=== PATIENT | female | born 1995 ===

== ENCOUNTER 2017-06-10 19:00 | Emergency (ER) | payer OTHER ==
[~2017-06-10] VITALS: Ht 160 cm; Wt 97.5 kg
[~2017-06-10 19:00] MED LIST: Augmentin 875-1 EACH PO; Bactrim Ds Tab1 EACH PO; CYCL10 PO; Flonase 0.05% N16 GM; GUAIFENESIN1200 MG PO; IBUP600 PO; IBUP800 PO; Naprosyn500 MG PO; Prednisone20 MG PO; Pyridium200 MG PO; RANI150 PO; Zofran Odt4 MG PO; Zofran Odt4 MG SL
[2017-06-10] MEDS ORDERED: PSEU120ER PO (20:40)
== END 2017-06-10 20:50 | disposition home or self-care (01) ==
LOC: ER 19:00
DX: J32.9 Chronic sinusitis, unspecified (principal); K21.9 Gastro-esophageal reflux disease without esophagitis; F17.200 Nicotine dependence, unspecified, uncomplicated; Z88.5 Allergy status to narcotic agent
CPT/HCPCS: 99282

== ENCOUNTER 2017-10-30 20:05 | Emergency (ER) | payer OTHER ==
[~2017-10-30] VITALS: Ht 160 cm; Wt 95.2 kg
[~2017-10-30 20:05] MED LIST changes: +PSEU120ER PO
[2017-10-30 21:02] LABS: Hematocrit 41.3 % (33.0-51.0); Hemoglobin 13.2 g/dL (11.5-16.0); Mean Corpuscular HGB 29.3 pg (26.0-34.0); Mean Corpuscular Volume 92 fL (80-100); Mean Platelet Volume 10.5 fL (9.1-12.4); Platelet Count 320 K/mm3 (150-400); RDW Coefficient Variation 11.9 % (11.7-14.2); RDW Standard Deviation 40.3 fL (35.1-46.3); White Blood Cell Count 9.12 K/mm3 (4.00-11.30)
[2017-10-30] MEDS ORDERED: MEDR10 PO (21:50)
[2017-10-30] MEDS ORDERED: Naprosyn500 MG PO (21:50)
== END 2017-10-30 21:59 | disposition home or self-care (01) ==
LOC: ER 20:05
PROVIDERS: Emergency Medicine
DX: N93.8 Other specified abnormal uterine and vaginal bleeding (principal); F17.210 Nicotine dependence, cigarettes, uncomplicated
CPT/HCPCS: 36415; 84703; 85027; 96360; 99283; J7030

== ENCOUNTER → 2019-12-26 | Outpatient (CLI) | payer OTHER ==
[~2019-12-26] MED LIST changes: +MEDR10 PO
== END | disposition home or self-care (01) ==
LOC: LAB EV 10:26 → LAB SHORT 10:26
DX: J06.9 Acute upper respiratory infection, unspecified (principal); Z20.828 Contact with and (suspected) exposure to other viral communicable diseases
CPT/HCPCS: U0003

== ENCOUNTER 2020-06-21 08:32 | Day surgery (SDC) | payer OTHER ==
[~2020-06-21] VITALS: Ht 160 cm; Wt 96.3 kg
== END 2020-06-21 10:15 | disposition home or self-care (01) ==
LOC: ORSCSDS 08:32
PROVIDERS: Internal Medicine Gastroenterology
PROC: 0D758ZZ Dilation of Esophagus, Via Natural or Artificial Opening Endoscopic (ICD-10-PCS; principal; 2020-06-21 09:45)
PROC: 0DB58ZX Excision of Esophagus, Via Natural or Artificial Opening Endoscopic, Diagnostic (ICD-10-PCS; principal; 2020-06-21 09:45)
DX: R13.10 Dysphagia, unspecified (principal); K20.90 Esophagitis, unspecified without bleeding; K44.9 Diaphragmatic hernia without obstruction or gangrene; K21.9 Gastro-esophageal reflux disease without esophagitis; Z87.891 Personal history of nicotine dependence; Z79.899 Other long term (current) drug therapy
CPT/HCPCS: 88305; J2250; J2704; J7120

== ENCOUNTER → 2020-07-04 | Outpatient (CLI) | payer OTHER ==
[2020-07-05 11:08] LABS: Candida species (DNA Probe) Negative (NEGATIVE); G. vaginalis (DNA Probe) Negative (NEGATIVE); T. vaginalis (DNA Probe) Negative (NEGATIVE)
[2020-07-12 05:10] LABS: HPV APTIMA Positive (Negative); HPV GENOTYPE 16 Negative (Negative)
== END | disposition home or self-care (01) ==
LOC: PLD 16:37 → LAB SHORT 16:37
PROVIDERS: Advanced Practice Midwife
DX: Z01.419 Encounter for gynecological examination (general) (routine) without abnormal findings (principal); N76.0 Acute vaginitis
CPT/HCPCS: 87480; 87510; 87624; 87625; 87660; G0123

== ENCOUNTER → 2020-08-14 | Outpatient (CLI) | payer OTHER | END | disposition home or self-care (01) | LOC: PLD 08:28 → LAB SHORT 08:28 | DX: D06.9 Carcinoma in situ of cervix, unspecified (principal) | CPT/HCPCS: 88305 ==

== ENCOUNTER → 2020-09-19 | Outpatient (CLI) | payer OTHER | END | disposition home or self-care (01) | LOC: LAB SHORT 13:05 | DX: R87.619 Unspecified abnormal cytological findings in specimens from cervix uteri (principal) | CPT/HCPCS: 88307 ==

== ENCOUNTER → 2020-12-19 | Outpatient (CLI) | payer OTHER | END | disposition home or self-care (01) | LOC: LAB SHORT 18:55 → LAB 18:55 | DX: R35.0 Frequency of micturition (principal) | CPT/HCPCS: 87086 ==

== ENCOUNTER → 2021-04-01 | Outpatient (CLI) | payer OTHER ==
[~2021-04-01] MED LIST changes: +DICY20; +FAMO20; +FERSU300; +LANS30EC; +XYZAL5 MG
[2021-04-02 13:10] LABS: HPV 16 Negative (Negative); HPV 18 Negative (Negative); HPV OTHER HR TYPES Negative (Negative)
== END ==
LOC: LAB 11:12 → LAB SHORT 11:12
PROVIDERS: Obstetrics & Gynecology
DX: R87.619 Unspecified abnormal cytological findings in specimens from cervix uteri (principal)
CPT/HCPCS: 87624; 88142

== ENCOUNTER 2021-04-02 09:27 | Day surgery (SDC) | payer OTHER ==
[~2021-04-02] VITALS: Ht 160 cm; Wt 94.7 kg
--- NOTE | 2021-04-02 10:06 | NUR ---
04/02/21 1006 [facility] MISSED SECOND IV IN RIGHT AC WORKED BY RN
== END 2021-04-02 11:19 | disposition home or self-care (01) ==
LOC: ORSCSDS 09:27
PROVIDERS: Internal Medicine Gastroenterology
PROC: 0DJD8ZZ Inspection of Lower Intestinal Tract, Via Natural or Artificial Opening Endoscopic (ICD-10-PCS; principal; 2021-04-02 10:45)
DX: K62.5 Hemorrhage of anus and rectum (principal); R19.7 Diarrhea, unspecified; K64.8 Other hemorrhoids; D50.9 Iron deficiency anemia, unspecified; R13.10 Dysphagia, unspecified; K21.9 Gastro-esophageal reflux disease without esophagitis; Z79.899 Other long term (current) drug therapy
CPT/HCPCS: 88305; J2250; J2704; J7120

== ENCOUNTER 2021-08-11 06:08 | Day surgery (SDC) | payer OTHER ==
[~2021-08-11] VITALS: Ht 160 cm; Wt 98.1 kg
[2021-08-11] MEDS ORDERED: ONDA4ODT MM (07:46)
[2021-08-11] MEDS ORDERED: DULO60 PO (07:46)
[2021-08-11] MEDS ORDERED: SETLAKIN 0.151 EAC2 PO (07:47)
== END 2021-08-11 11:29 | disposition home or self-care (01) ==
LOC: ORSCSDS 06:08
PROVIDERS: Otolaryngology
PROC: 8E09XBZ Computer Assisted Procedure of Head and Neck Region (ICD-10-PCS; principal; 2021-08-11 08:00)
PROC: 09DV4ZZ Extraction of Left Ethmoid Sinus, Percutaneous Endoscopic Approach (ICD-10-PCS; principal; 2021-08-11 08:00)
PROC: 09DU4ZZ Extraction of Right Ethmoid Sinus, Percutaneous Endoscopic Approach (ICD-10-PCS; principal; 2021-08-11 08:00)
PROC: 09SM0ZZ Reposition Nasal Septum, Open Approach (ICD-10-PCS; principal; 2021-08-11 08:00)
DX: J32.0 Chronic maxillary sinusitis (principal); J34.89 Other specified disorders of nose and nasal sinuses; J34.2 Deviated nasal septum; J34.1 Cyst and mucocele of nose and nasal sinus; Z87.891 Personal history of nicotine dependence; E66.01 Morbid (severe) obesity due to excess calories; Z68.38 Body mass index [BMI] 38.0-38.9, adult; F41.8 Other specified anxiety disorders; Z79.899 Other long term (current) drug therapy
CPT/HCPCS: 88305; J0171; J1100; J2250; J2405; J2704; J3010; J7120

== ENCOUNTER → 2021-09-30 | Outpatient (CLI) | payer OTHER ==
[~2021-09-30] MED LIST changes: +DULO60 PO; +ONDA4ODT MM; +SETLAKIN 0.151 EAC2 PO
[2021-10-01 16:09] LABS: HPV 16 Negative (Negative); HPV 18 Negative (Negative); HPV OTHER HR TYPES Negative (Negative)
== END | disposition home or self-care (01) ==
LOC: LAB SHORT 09:21 → LAB 09:21
PROVIDERS: Obstetrics & Gynecology
DX: Z09 Encounter for follow-up examination after completed treatment for conditions other than malignant neoplasm (principal); Z87.42 Personal history of other diseases of the female genital tract
CPT/HCPCS: 87624; 88142

== ENCOUNTER → 2022-01-08 | Outpatient (CLI) | payer OTHER | END | disposition home or self-care (01) | LOC: LAB 08:10 → LAB SHORT 08:10 → LAB FUT 01-06 11:35 | DX: K52.9 Noninfective gastroenteritis and colitis, unspecified (principal) | CPT/HCPCS: 82653 ==

== ENCOUNTER → 2022-04-09 | Outpatient (CLI) | payer OTHER ==
[2022-04-10 15:11] LABS: HPV 16 Negative (Negative); HPV 18 Negative (Negative); HPV OTHER HR TYPES Negative (Negative)
== END | disposition home or self-care (01) ==
LOC: LAB 10:37 → RAD SHORT 10:37
PROVIDERS: Advanced Practice Midwife
DX: Z09 Encounter for follow-up examination after completed treatment for conditions other than malignant neoplasm (principal); Z87.42 Personal history of other diseases of the female genital tract
CPT/HCPCS: 87624; 88142

== ENCOUNTER 2022-12-12 12:29 | Emergency (ER) | payer OTHER ==
[~2022-12-12] VITALS: Ht 160 cm; Wt 99.8 kg
[2022-12-12 12:37] VITALS: BP 128/58
[2022-12-12] MEDS ORDERED: METPRE4DP PO (15:25)
[2022-12-12] MEDS ORDERED: EPIPEN0.3 MG/0.3 IM (15:25)
== END 2022-12-12 15:38 | disposition home or self-care (01) ==
LOC: ER 12:29
DX: T78.2XXA Anaphylactic shock, unspecified, initial encounter (principal); L50.0 Allergic urticaria; F17.210 Nicotine dependence, cigarettes, uncomplicated; Z79.3 Long term (current) use of hormonal contraceptives
CPT/HCPCS: 96374; 96375; 99283-25; A9270; J1200; J2930

== ENCOUNTER → 2023-04-12 | Outpatient (CLI) | payer OTHER ==
[~2023-04-12] MED LIST changes: +EPIPEN0.3 MG/0.3 IM; +METPRE4DP PO
== END ==
LOC: LAB 11:20 → LAB SHORT 11:20
PROVIDERS: Advanced Practice Midwife
DX: Z01.419 Encounter for gynecological examination (general) (routine) without abnormal findings (principal)
CPT/HCPCS: G0145

== ENCOUNTER 2023-10-10 12:04 | Emergency (ER) | payer OTHER ==
[~2023-10-10] VITALS: Ht 160 cm; Wt 99.8 kg
[2023-10-10 16:35] VITALS: BP 128/79
== END 2023-10-10 17:12 | disposition home or self-care (01) ==
LOC: ER 12:04
DX: J32.0 Chronic maxillary sinusitis (principal); Z88.5 Allergy status to narcotic agent; Z79.899 Other long term (current) drug therapy; Z87.891 Personal history of nicotine dependence
CPT/HCPCS: 70486

== ENCOUNTER → 2024-08-26 | Outpatient (CLI) | payer OTHER | LOC: LAB SHORT 10:27 → LAB 10:27 | DX: N39.0 Urinary tract infection, site not specified (principal) | CPT/HCPCS: 87077; 87086; 87186 ==